=== PATIENT | male | born 1975 | race African-American/Black ===

== ENCOUNTER 2023-05-12 13:35 | Inpatient (IN) | payer OTHER ==
[2023-05-12 15:51] VITALS: BMI 52.9
[2023-05-12] MEDS ORDERED: ACETAMINOPHEN 325 MG TABLET (FP) PO PRN (17:27)
[2023-05-12] MEDS ORDERED: BENZONATATE 200 MG CAPSULE PO PRN (17:27)
[2023-05-12] MEDS ORDERED: COLLOIDAL OATMEAL 1 BAR EACH TP PRN (17:27)
[2023-05-12] MEDS ORDERED: hydrOXYzine PAMOATE 25 MG CAPSULE (FP) PO PRN (17:27)
[2023-05-12] MEDS ORDERED: MAG HYDROX/AL HYDROX/SIMETH 30 ML UNIT-DOSE CUP PO PRN (17:27)
[2023-05-12] MEDS ORDERED: LOPERAMIDE HCL 2 MG CAPSULE PO PRN (17:27)
[2023-05-12] MEDS ORDERED: NALOXONE HCL (KLOXXADO) 8 MG SPRAY NS PRN (17:27)
[2023-05-12] MEDS ORDERED: guaiFENesin 600 MG TABLET.ER (FP) PO PRN (17:27)
[2023-05-12] MEDS ORDERED: MAGNESIUM HYDROX 2400MG/30ML ORAL SUSPENSION 30 ML CUP PO PRN (17:27)
[2023-05-12] MEDS ORDERED: BENZOCAINE/MENTHOL (CHLORASEPTIC ) LOZENGE MM PRN (17:27)
[2023-05-12] MEDS ORDERED: POLYETHYLENE GLYCOL (HEALTHYLAX) 3350 17 GM PACKET PO PRN (17:27)
[2023-05-12] MEDS ORDERED: NALOXONE HCL 0.4 MG/ML VIAL IM PRN (17:27)
[2023-05-12] MEDS ORDERED: IBUPROFEN 600 MG TABLET (FP) PO PRN (17:27)
[2023-05-12] MEDS ORDERED: IBUPROFEN 400 MG TABLET (FP) PO PRN (17:27)
[2023-05-12] MEDS ORDERED: cloNIDine HCL 0.1 MG TABLET PO STA (17:53)
[2023-05-12] MEDS ORDERED: cloNIDine HCL 0.1 MG TABLET ONE (18:14)
[2023-05-12] MEDS: INSULIN SLIDING SCALE (NOVOLOG) 1 VIAL SQ SCH (18:14)
[2023-05-12] MEDS ORDERED: INSULIN (NOVOLOG) ASPART 100 UNITS/ML 10ML VIAL ONE (18:15)
[2023-05-12] MEDS ORDERED: PRENATAL VITAMINS W/ FOLIC ACID TABLET (FP) PO ONE (18:15)
[2023-05-12] MEDS: PRENATAL VITAMINS W/ FOLIC ACID TABLET (FP) PO SCH (18:17)
[2023-05-12] MEDS: MELATONIN 5 MG TABLETS PO SCH (21:22)
[2023-05-12] MEDS: THIAMINE HCL 100 MG TABLET (FP) PO SCH (21:22)
[2023-05-13] MEDS: INSULIN SLIDING SCALE (NOVOLOG) 1 VIAL SQ SCH ×3 (06:43→16:55)
[2023-05-13] MEDS ORDERED: INSULIN (NOVOLOG) ASPART 100 UNITS/ML 10ML VIAL ONE ×3 (06:44→16:40)
[2023-05-13] MEDS ORDERED: TUBERCULIN PPD 5 TU/0.1ML VIAL ID ONE (09:19)
[2023-05-13] MEDS: PRENATAL VITAMINS W/ FOLIC ACID TABLET (FP) PO SCH (10:57)
[2023-05-13 11:04] LABS: HEMATOCRIT 41.4 % (35.4-49); HEMOGLOBIN 12.9 GM/dL (11.7-16.9); MCH 27.1 pg (25.7-33.7); MCHC 31.1 g/dl (32.0-35.9); MEAN CELL VOLUME 87.2 fl (80-96); MEAN PLT VOLUME 9.6 fl (7.5-11.1); PLATELET COUNT 231 10^3/uL (134-434); RBC 4.75 M/mm3 (4.00-5.60); RDW 14.3 % (11.9-15.9); WHITE BLOOD COUNT 6.4 K/mm3 (4.0-10.0)
[2023-05-13 11:23] LABS: CHLORIDE 103 mmol/L (98-107); POTASSIUM 4.4 mmol/L (3.5-5.1); SODIUM 137 mmol/L (136-145)
[2023-05-13 11:32] LABS: GLUCOSE,RANDOM 245 mg/dL (74-106)
[2023-05-13 11:33] LABS: ALBUMIN 3.1 g/dl (3.4-5.0); ANION GAP 5 mmol/L (4-13); BLOOD UREA NITROGEN 12.8 mg/dL (7-18); CO2 29 mmol/L (21-32)
[2023-05-13 11:36] LABS: CREATININE 0.9 mg/dL (0.55-1.3); SGOT/AST 14 U/L (15-37); SGPT/ALT 26 U/L (13-61)
[2023-05-13 11:37] LABS: BILIRUBIN,TOTAL 0.4 mg/dL (0.2-1); TOT PROT 6.7 g/dl (6.4-8.2)
[2023-05-13 11:38] LABS: ALK PHOS 98 U/L (45-117)
[2023-05-13 12:54] LABS: SYPHILIS W/ RPR CONF NON-REACTIVE (NONREACTIVE)
[2023-05-13] MEDS: MELATONIN 5 MG TABLETS PO SCH (21:08)
[2023-05-13] MEDS: THIAMINE HCL 100 MG TABLET (FP) PO SCH (21:08)
[2023-05-13] MEDS: LACTULOSE 20 GM/30 ML UDC (FOR ORAL USE ONLY) PO SCH (21:09)
[2023-05-14] MEDS: LACTULOSE 20 GM/30 ML UDC (FOR ORAL USE ONLY) PO SCH ×3 (06:59→21:42)
[2023-05-14] MEDS: INSULIN SLIDING SCALE (NOVOLOG) 1 VIAL SQ SCH ×3 (08:30→17:12)
[2023-05-14] MEDS ORDERED: INSULIN (NOVOLOG) ASPART 100 UNITS/ML 10ML VIAL ONE ×3 (08:32→16:37)
[2023-05-14] MEDS: PRENATAL VITAMINS W/ FOLIC ACID TABLET (FP) PO SCH (10:08)
[2023-05-14] MEDS: MELATONIN 5 MG TABLETS PO SCH (21:42)
[2023-05-14] MEDS: THIAMINE HCL 100 MG TABLET (FP) PO SCH (21:42)
[2023-05-15] MEDS: LACTULOSE 20 GM/30 ML UDC (FOR ORAL USE ONLY) PO SCH ×4 (06:56→22:36)
[2023-05-15] MEDS: INSULIN SLIDING SCALE (NOVOLOG) 1 VIAL SQ SCH ×3 (06:57→16:46)
[2023-05-15] MEDS ORDERED: INSULIN (NOVOLOG) ASPART 100 UNITS/ML 10ML VIAL ONE ×2 (08:44→11:58)
[2023-05-15] MEDS: PRENATAL VITAMINS W/ FOLIC ACID TABLET (FP) PO SCH (09:45)
[2023-05-15 18:39] LABS: PH,URINE 6.5 (5.0-8.0); URINE APPEARANCE CLEAR; URINE BILIRUBIN NEGATIVE (NEGATIVE); URINE COLOR YELLOW; URINE GLUCOSE (UA) 3+ (NEGATIVE); URINE KETONE NEGATIVE (NEGATIVE); URINE LEUK ESTERASE NEGATIVE (NEGATIVE); URINE NITRITE NEGATIVE (NEGATIVE); URINE PROTEIN NEGATIVE (NEGATIVE); URINE UROBILINOGEN 0.2 mg/dL (0.2-1.0)
[2023-05-15] MEDS: THIAMINE HCL 100 MG TABLET (FP) PO SCH (21:42)
[2023-05-15] MEDS: MELATONIN 5 MG TABLETS PO SCH (21:42)
[2023-05-16] MEDS: LACTULOSE 20 GM/30 ML UDC (FOR ORAL USE ONLY) PO SCH ×3 (06:23→21:28)
[2023-05-16] MEDS ORDERED: INSULIN (NOVOLOG) ASPART 100 UNITS/ML 10ML VIAL ONE (06:54)
[2023-05-16] MEDS: INSULIN SLIDING SCALE (NOVOLOG) 1 VIAL SQ SCH ×4 (06:54→16:33)
[2023-05-16] MEDS: PRENATAL VITAMINS W/ FOLIC ACID TABLET (FP) PO SCH (09:19)
[2023-05-16] MEDS ORDERED: LIDOCAINE 4% PATCH TP ONE ×2 (10:06→10:45)
[2023-05-16] MEDS: MELATONIN 5 MG TABLETS PO SCH (21:28)
[2023-05-16] MEDS: THIAMINE HCL 100 MG TABLET (FP) PO SCH (21:28)
[2023-05-16] MEDS ORDERED: LIDOCAINE PATCH REMOVAL MC ONE (22:00)
[2023-05-17] MEDS: LACTULOSE 20 GM/30 ML UDC (FOR ORAL USE ONLY) PO SCH (06:57)
[2023-05-17] MEDS: INSULIN SLIDING SCALE (NOVOLOG) 1 VIAL SQ SCH ×3 (07:03→17:39)
[2023-05-17] MEDS ORDERED: INSULIN (NOVOLOG) ASPART 100 UNITS/ML 10ML VIAL ONE ×2 (07:03→11:47)
[2023-05-17] MEDS: PRENATAL VITAMINS W/ FOLIC ACID TABLET (FP) PO SCH (09:32)
[2023-05-17] MEDS ORDERED: LIDOCAINE 4% PATCH TP SCH (10:00)
[2023-05-17] MEDS: RIFAXIMIN 550 MG TABLET PO SCH ×2 (11:42→21:41)
[2023-05-17] MEDS ORDERED: LIDOCAINE 4% PATCH TP PRN (16:08)
[2023-05-17] MEDS: THIAMINE HCL 100 MG TABLET (FP) PO SCH (21:41)
[2023-05-17] MEDS: MELATONIN 5 MG TABLETS PO SCH (21:41)
[2023-05-17] MEDS: LIDOCAINE PATCH REMOVAL MC SCH (23:42)
[2023-05-18] MEDS: INSULIN SLIDING SCALE (NOVOLOG) 1 VIAL SQ SCH ×3 (06:47→16:53)
[2023-05-18] MEDS ORDERED: INSULIN (NOVOLOG) ASPART 100 UNITS/ML 10ML VIAL ONE ×2 (06:48→11:43)
[2023-05-18] MEDS: RIFAXIMIN 550 MG TABLET PO SCH ×2 (10:03→21:27)
[2023-05-18] MEDS: PRENATAL VITAMINS W/ FOLIC ACID TABLET (FP) PO SCH (10:03)
[2023-05-18] MEDS: LIDOCAINE PATCH REMOVAL MC SCH (21:26)
[2023-05-18] MEDS: MELATONIN 5 MG TABLETS PO SCH (21:26)
[2023-05-18] MEDS: THIAMINE HCL 100 MG TABLET (FP) PO SCH (21:26)
[2023-05-19 07:09] VITALS: BP 136/73; PULSE 86; RESP 16; TEMP 97.9
[2023-05-19] MEDS: INSULIN SLIDING SCALE (NOVOLOG) 1 VIAL SQ SCH (07:32)
[2023-05-19] MEDS ORDERED: INSULIN (NOVOLOG) ASPART 100 UNITS/ML 10ML VIAL ONE (07:53)
[2023-05-19] MEDS: RIFAXIMIN 550 MG TABLET PO SCH (10:01)
[2023-05-19] MEDS: PRENATAL VITAMINS W/ FOLIC ACID TABLET (FP) PO SCH (10:01)
== END 2023-05-19 10:43 | disposition home or self-care (01) | DRG 895 ==
LOC: YASAS 13:35 → Y3E 19:33
PROVIDERS: ADMIT Allergy & Immunology; ATTEND Psychiatry & Neurology Pain Medicine
PROC: HZ42ZZZ Group Counseling for Substance Abuse Treatment, Cognitive-Behavioral (ICD-10-PCS; principal; 2023-05-12)
DX: F10.20 Alcohol dependence, uncomplicated (principal); E72.20 Disorder of urea cycle metabolism, unspecified; Z68.43 Body mass index [BMI] 50.0-59.9, adult; Z59.01 Sheltered homelessness; I10 Essential (primary) hypertension; E10.9 Type 1 diabetes mellitus without complications; Z79.4 Long term (current) use of insulin; J45.909 Unspecified asthma, uncomplicated; G47.30 Sleep apnea, unspecified; R60.0 Localized edema; E66.01 Morbid (severe) obesity due to excess calories
CPT/HCPCS: 36415; 80053; 80307; 81003; 82140; 82962; 85027; 86780; 86803; 87635; 87811